=== PATIENT | male | born 1985 | race African-American/Black ===

== ENCOUNTER 2017-09-15 19:41 | Emergency (ER) | payer SELFPAY ==
[~2017-09-15] VITALS: Ht 188 cm; Wt 147.0 kg
[~2017-09-15 19:41] MED LIST: CALCIUM CHLORIDE 1GM/10ML SYR IV ONE; EPINEPHRINE 0.1MG/ML (1:10,000) 10ML SYR ONE; LIDOCAINE HCL 2% 5ML SYRINGE IV ONE; SODIUM BICARBONATE 7.5% 0.9 MEQ/ML 50ML SYR IV ONE
[2017-09-15 19:43] VITALS: BP 0/0
[2017-09-15] MEDS ORDERED: EPINEPHRINE 0.1MG/ML (1:10,000) 10ML SYR ONE (20:06)
== END 2017-09-15 20:01 | disposition expired ==
LOC: ER 19:41
DX: I46.9 Cardiac arrest, cause unspecified (principal); I11.0 Hypertensive heart disease with heart failure; I50.9 Heart failure, unspecified
CPT/HCPCS: 31500; 82962; 92950; 99291; J3490